=== PATIENT | female | born 2000 | race Two or more races ===

== ENCOUNTER 2023-08-30 22:57 | Emergency (ER) | payer MEDICAID, OTHER ==
[~2023-08-30] VITALS: Ht 162.6 cm; Wt 87.5 kg
[2023-08-30 23:10] VITALS: BP 133/77; PULSE 72; RESP 18; O2SAT 99
== END 2023-08-31 05:24 | disposition left against medical advice (07) ==
LOC: ER 22:57
DX: S41.112A Laceration without foreign body of left upper arm, initial encounter (principal); Z53.21 Procedure and treatment not carried out due to patient leaving prior to being seen by health care provider; W54.0XXA Bitten by dog, initial encounter; Y93.89 Activity, other specified; Y92.89 Other specified places as the place of occurrence of the external cause; Y99.8 Other external cause status